=== PATIENT | male | born 1975 | race Two or more races ===

== ENCOUNTER 2021-07-29 15:17 | Emergency (ER) | payer BC ==
[~2021-07-29] VITALS: Ht 175.3 cm; Wt 85.3 kg
[2021-07-29 16:29] LABS: Albumin 3.8 g/dL (3.4-5.0); Calcium 8.4 mg/dL (8.5-10.1); Potassium 3.7 mmol/L (3.5-5.1)
[2021-07-29 16:34] LABS: BUN/Creatinine Ratio 11.3; Bilirubin, Total 0.7 mg/dL (0.2-1.0); Total Protein 7.7 g/dL (6.4-8.2)
[2021-07-29 16:42] LABS: Basophils # (auto) 0 10 ^3/uL (0-0.2); Basophils % (auto) 0.3 % (0.0-2.0); Eosinophils # (auto) 0 10 ^3/uL (0-0.8); Hematocrit 45.9 % (41.0-53.0); Hemoglobin 15.5 g/dL (13.5-17.5); Lymphocytes # (auto) 1.7 10 ^3/uL (0.4-5.4); Lymphocytes % (auto) 34.2 % (10.0-50.0); Mean Corpuscular Hemoglobin 28.8 pg (28.0-32.0); Mean Corpuscular Hgb Conc. 33.9 g/dL (32.0-36.0); Monocytes # (auto) 0.7 10 ^3/uL (0-1.3); Monocytes % (auto) 14.8 % (0.0-12.0); Neutrophils # (auto) 2.5 10 ^3/uL (1.6-8.6); Neutrophils % (auto) 50.7 % (37.0-80.0); Nucleated Red Blood Cells % 0.3 %; Red Cell Distribution Width 12.7 % (11.8-14.3)
[2021-07-29] MEDS ORDERED: cefTRIAXone W LIDOCAINE 1 GM IM IM ONE (16:45)
[2021-07-29 16:47] LABS: Urine Bacteria NONE SEEN /hpf (None Seen); Urine Blood Negative /uL (Negative); Urine Specific Gravity 1.014 (1.001-1.035); Urine WBC 1 /hpf (0 - 3)
[2021-07-29] MEDS ORDERED: DexAMETHasone SOD PHOS 10MG/1ML VIAL INJ IV ONE (17:00)
[2021-07-29] MEDS ORDERED: cefTRIAXone SOD 1,000 MG VL ONE (18:10)
[2021-07-29] MEDS ORDERED: LIDOCAINE 1% HCL (LOCAL ANESTH.) INJ 20ML MDV ONE (18:10)
[2021-07-29] MEDS ORDERED: DexAMETHasone SOD PHOS 10MG/1ML VIAL INJ IM ONE (18:15)
[2021-07-29 18:25] VITALS: BP 142/58
== END 2021-07-29 18:30 | disposition home or self-care (01) ==
LOC: ER 15:17
DX: U07.1 COVID-19 (principal); J12.82 Pneumonia due to coronavirus disease 2019; Z88.0 Allergy status to penicillin
CPT/HCPCS: 36415; 71045; 80053; 81001; 85025; 96372; 99284; C9803; J0696; J1100; J2001; U0003

== ENCOUNTER 2025-04-25 16:48 | Inpatient (IN) | payer BC, OTHER ==
[~2025-04-25] VITALS: Ht 175.3 cm; Wt 83.0 kg
--- NOTE | 2025-04-25 17:25 | ED.PDOC ---
History of Present Illness HPI Comments 50-year-old male presents to the ER with a prior medical history of CAD in the chief complaint of chest pain. Patient reports on having one week of worsening left-sided chest pain which has been intermittent associated with shortness a breath. 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 Denies chills, fever, N/V/D. No other associated symptoms, modifiers, recent injuries or sick contacts present at this time. Chief Complaint: Chest Pain Time Seen by MD: 17:20 Reviewed Notes: Nurses Notes, Medications, Allergies Allergies: Coded Allergies: Penicillins (Verified Allergy, Unknown, 07/29/21) Information Source: Patient Mode of Arrival: Ambulatory Severity: Moderate Timing: Weeks Duration: Since onset Prehospital treatment: None Past Medical History PAST MEDICAL HISTORY: CAD Surgical History: Denies all surgeries Family History Family History: Reviewed,noncontributory to illness, Unknown Social History Smoker: Non-Smoker Alcohol: Denies ETOH Use Drugs: Denies Drug Use Constitutional: denies: chills, diaphoresis, fatigue, fever, malaise, sweats, weakness, others EENTM: denies: blurred vision, double vision, ear bleeding, ear discharge, ear drainage, ear pain, ear ringing, eye pain, eye redness, hearing loss, mouth pain, mouth swelling, nasal discharge, nose bleeding, nose congestion, nose pain, photophobia, tearing, throat pain, throat swelling, voice changes, others Respiratory: reports: shortness of breath; denies: cough, hemoptysis, orthopnea, SOB at rest, SOB with excertion, stridor, wheezing, others Cardiovascular: reports: chest pain; denies: dizzy spells, diaphoresis, Dyspnea on exertion, edema, irregular heart beat, left arm pain, lightheadedness, palpitations, PND, syncope, others Gastrointestinal: denies: abdomen distended, abdominal pain, blood streaked bowels, constipated, diarrhea, dysphagia, difficulty swallowing, hematemesis, melena, nausea, poor appetite, poor fluid intake, rectal bleeding, rectal pain, vomiting, others Genitourinary: denies: burning, dysuria, flank pain, frequency, hematuria, incontinence, penile discharge, penile sore, pain, testicle pain, testicle swelling, urgency, others Neurological: denies: dizziness, fainting, headache, left sided numbness, left sided weakness, numbness, paresthesia, pre-existing deficit, right sided numbness, right sided weakness, seizure, speech problems, tingling, tremors, weakness, others Musculoskeletal: denies: back pain, gout, joint pain, joint swelling, muscle pain, muscle stiffness, neck pain, others Integumetry: denies: bruises, change in color, change in hair/nails, dryness, laceration, lesions, lumps, rash, wounds, others Allergic/Immunocompromised: denies: Difficulty Healing, Frequent Infections, Hives, Itching, others Hematologic/Lymphatic: denies: anemia, blood clots, easy bleeding, easy bruising, swollen glands, others Endocrine: denies: excessive hunger, excessive sweating, excessive thirst, excessive urination, flushing, intolerance to cold, intolerance to heat, unexplained weight gain, unexplained weight loss, others Psychiatric: denies: anxiety, bipolar disorder, depression, hopeless, panic disorder, schizophrenia, sleepless, suicidal, others All Other Systems: Reviewed and Negative Physical Exam Exam Comments Patient looked comfortable General Appearance: No Apparent Distress, Normal HEENT: Normal ENT Inspection, Pharynx Normal, TMs Normal Neck: Full Range of Motion, Non-Tender, Normal, Normal Inspection Respiratory: Chest Non-Tender, Lungs Clear, No Accessory Muscle Use, No Respiratory Distress, Normal Breath Sounds Cardiovascular: No Edema, No JVD, No Murmur, No Gallop, Normal Peripheral Pulses, Regular Rate/Rhythm, Other (Left-sided chest pain) Breast Exam: Deferred Gastrointestinal: No Organomegaly, Non Tender, No Pulsatile Mass, Normal Bowel Sounds, Soft Genitalia: Deferred Pelvic: Deferred Rectal: Deferred Extremities: No calf tenderness, Normal capillary refill, Normal inspection, Normal range of motion, Non-tender, No pedal edema Musculoskeletal : Apperance: Normal Neurologic: Alert, chief executive or managing director II-XII nml as Tested, No Motor Deficits, Normal Affect, Normal Mood, No Sensory Deficits Cerebellar Function: Normal Reflexes: Normal Skin: Dry, Normal Color, Warm Lymphatic: No Adenopathy Was a procedure done? Was a procedure done?: No Differential Dx Considerations may include: ACS, CVA, viral syndrome, electrolyte abnormality X-Ray, Labs, Meds, VS Vital Signs Date Time Temp Pulse Resp B/P (MAP) Pulse Ox O2 Delivery O2 Flow Rate FiO2 04/25/25 17:57 62 04/25/25 16:56 68 04/25/25 16:53 98.1 76 18 140/86 97 98.1 Lab Test 04/25/25 17:08 Range/Units White Blood Count Pending Red Blood Count Pending Hemoglobin Pending Hematocrit Pending Mean Corpuscular Volume Pending Mean Corpuscular Hemoglobin Pending Mean Corpuscular Hemoglobin Concent Pending Red Cell Distribution Width Pending Platelet Count Pending Mean Platelet Volume Pending Neutrophils (%) (Auto) Pending Lymphocytes (%) (Auto) Pending Monocytes (%) (Auto) Pending Basophils (%) (Auto) Pending Neutrophils # (Auto) Pending Lymphocytes # (Auto) Pending Monocytes # (Auto) Pending Sodium Level Pending Potassium Level Pending Chloride Level Pending Carbon Dioxide Level Pending Anion Gap Pending Blood Urea Nitrogen Pending Creatinine Pending Glomerular Filtration Rate Calc Pending BUN/Creatinine Ratio Pending Serum Glucose Pending Calcium Level Pending Troponin I High Sensitivity 4 </=54 ng/L Time of 1ST Reevaluation: 17:50 Reevaluation 1ST: Unchanged Patient Education/Counseling: Diagnosis, Treatment, Prognosis Family Education/Counseling: No Family Present SEPSIS Sepsis Screen Date sepsis recognized/suspect: Apr 25, 2025 Time Sepsis recognized/suspect: 1651 Recent Procedure: No On Antibiotic Therapy: No Respiratory Rate >20: No Heart Rate >90: No Temp<36 C (96.8 F) or >38.3 C: No SBP <90 or MAP <65 mmHG: No New Acute Mental Status Change: No Is the patient on CPAP, BIPAP,: No Physician Orders Electrocardigram (04/25/25 16:58) Troponin-I Hs (04/25/25 17:58) Troponin-I Hs (04/25/25 19:58) Electrocardigram (04/25/25 17:58) Electrocardigram (04/25/25 19:58) Basic Metabolic Panel (04/25/25 17:07) Complete Blood Count (04/25/25 17:07) Chest Portable (04/25/25 17:07) Vital Signs Date Time Temp Pulse Resp B/P (MAP) Pulse Ox O2 Delivery O2 Flow Rate FiO2 04/25/25 17:57 62 04/25/25 16:56 68 04/25/25 16:53 98.1 76 18 140/86 97 98.1 Laboratory Tests Test 04/25/25 17:08 White Blood Count Pending Departure 1 Departure Time of Disposition: 18:04 (Patient presented with chest pain that was concerning for possible STEMI, ACS, PE, Pneumonia, Muscle Strain, COPD, Dissection. Data: 1. I ordered and reviewed the result of at least 3 labs including a CBC, BMP, and Troponin. 2. I independently interpreted the following tests: EKG which shows sinus arrhythmia and Chest X-ray which shows benign chest.Risk:This patient has a high risk of morbidity due to further diagnostic testing or treatment and may suffer from an acute cardiac or respiratory disorder. Workup reveals concern for ACS and patient should be admitted for further workup and possible expert consultation. ) Impression: Primary Impression: Acute chest pain Disposition: ADMITTED INPATIENT Admit to: Med Surg Condition: Guarded Critical Care Note Critical Care Time?: Yes Critical care comment: Acute chest pain Authorized and Performed by: Dannielle Garcia MD Total critical care time: Approximately 38 minutes Due to a high probability of clinically significant, life threatening deterioration, the patient required my highest level of preparedness to intervene emergently and I personally spent this critical care time directly and personally managing the patient. This critical care time included obtaining a history; examining the patient; pulse oximetry; ordering and review of studies; arranging urgent treatment with development of a management plan; evaluation of patient's response to treatment; frequent reassessment; and, discussions with other providers. This critical care time was performed to assess and manage the high probability of imminent, life-threatening deterioration that could result in multi-organ failure. It was exclusive of separately billable procedures and treating other patients and teaching time. Please see my other sections and the rest of the note for further information on patient assessment and treatment. Stability Stability form required: No I personally scribed for WENDY VIAVS PAC ([email or web address]) on 04/25/25 at 17:25. Electronically submitted by Rhys Campo ([email or web address]). WENDY VIVAS Apr 25, 2025 17:25 DANNIELLE GARCIA MD Apr 25, 2025 18:05
[2025-04-25 17:59] LABS: Hematocrit 44.2 % (41.0-53.0); Hemoglobin 15.6 g/dL (13.5-17.5); Mean Corpuscular Hemoglobin 29.6 pg (28.0-32.0); Mean Corpuscular Volume 84.1 fL (80.0-100.0); Nucleated Red Blood Cells % 0.1 %
[2025-04-25 18:10] LABS: Chloride 106 mmol/L (98-107); Potassium 3.6 mmol/L (3.5-5.1); Sodium 139 mmol/L (136-145)
[2025-04-25 18:11] LABS: Anion Gap 7 (5-15); Calcium 9.4 mg/dL (8.7-10.4); Carbon Dioxide 26 mmol/L (20-31)
[2025-04-25 18:16] LABS: BUN/Creatinine Ratio 13.3 (10.0-20.0); Blood Urea Nitrogen 15 mg/dL (9-23); Glucose 90 mg/dL (74-106)
--- NOTE | 2025-04-25 18:16 | DVH ---
CHEST RADIOGRAPH Indication: Chest pain Technique: Single frontal view of the chest was obtained Comparison: CHEST XRAY 1 VIEW on DOS: 07/29/21 FINDINGS: Lines and Tubes: None Lungs: No focal consolidation. Pleura: No effusion. No pneumothorax. Cardiomediastinal contours: Unremarkable Bones: No acute osseous abnormality. IMPRESSION: 1. No acute cardiopulmonary disease.
[2025-04-25] MEDS ORDERED: MORPHINE SULFATE INJ 2 MG/ml SYRG IV PRN (22:45)
[2025-04-26] VITALS (11 sets, daily range): BP systolic 121–139; BP diastolic 70–86; PULSE 47–67; RESP 16–18; TEMP 97.8–98; O2SAT 96–98
[2025-04-26] MEDS ORDERED: NITROGLYCERIN 0.4 MG SL TAB SL PRN (01:45)
[2025-04-26] MEDS ORDERED: MORPHINE SULFATE INJ 2 MG/ml SYRG IV PRN ×2 (01:45)
[2025-04-26] MEDS ORDERED: DOCUSATE SOD 100 MG CAP PO PRN (01:45)
[2025-04-26] MEDS ORDERED: ONDANSETRON HCL 4 MG/2 ML VIAL IV PRN (01:45)
[2025-04-26] MEDS: SODIUM CHLORIDE 0.9% 1,000 ML IV SCH (02:55)
--- NOTE | 2025-04-26 03:19 | DVHHPRES ---
History of Present Illness Resident Creating Document: ELTON IBARRA RESIDENT History of Present Illness Tio Robb, a 50-year-old male with a history of coronary artery disease presents to the ER with one week of worsening intermittent left-sided chest pain associated with shortness of breath. 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 He denies fever, chills, nausea, vomiting, diarrhea, recent injuries, or sick contacts. Pain is described as sharp, burning pain, sudden in onset, in the substernal area , which is "coming and going" feels like a "shock in my chest" which increases with sudden movement, decreased with rest and relaxation. Patient states that he had undergone angiogram before and states that he has stenosis in 2 arteries, but states no stent was placed. He arrived ambulatory and has not received any prehospital treatment. Patient is admitted for further management. Past Medical Hx: CAD Past Surgical Hx: Removed benign tumor in groin Family Hx: Reviewed,noncontributory to illness, Unknown Social History: The patient is a non-smoker, denies alcohol use, and denies any illicit drug use. Comes from home. Home medications: ASA, Atorvastatin Review of Systems Constitutional: No: Fever, Chills, Sweats, Weakness, Malaise, Other Eyes: No: Pain, Vision change, Conjunctivae inflammation, Eyelid inflammation, Other, Redness ENT: No: Ear pain, Ear discharge, Nose pain, Nose discharge, Nose congestion, Mouth pain, Mouth swelling, Throat pain, Throat swelling, Other Respiratory: Shortness of breath Cardiovascular: Chest Pain Gastrointestinal: No: Nausea, Vomiting, Abdominal Pain, Diarrhea, Constipation, Melena, Hematochezia, Other Genitourinary: No Dysuria, No Frequency, No Incontinence, No Hematuria, No Retention, No Other Musculoskeletal: No: other, neck pain, shoulder pain, arm pain, back pain, hand pain, leg pain, foot pain Skin: No: Rash, Lesions, Jaundice, Bruising, Other Neurological: No: Weakness, Numbness, Incoordination, Change in speech, Confusion, Seizures, Other Allergies: Coded Allergies: Penicillins (Verified Allergy, Unknown, 07/29/21) Medications Current Medications Medications Dose Ordered Sig/Horace Route Start Time Stop Time Status Last Admin Dose Admin Nitroglycerin 0.4 mg Q5MINP PRN SL 9/5/25 22:45 Morphine Sulfate 2 mg Q30M PRN IV 04/25/25 22:45 Sodium Chloride 1,000 ml @ 60 mls/hr [id number] IV 04/26/25 01:45 Ondansetron HCl 4 mg Q4HP PRN IV 04/26/25 01:45 Docusate Sodium 100 mg BIDPRN PRN PO 04/26/25 01:45 Morphine Sulfate 2 mg Q4HPRN PRN IV 04/26/25 01:45 Nitroglycerin 0.4 mg Q5MINP PRN SL 04/26/25 01:45 Morphine Sulfate 2 mg Q30M PRN IV 04/26/25 01:45 Exam Vital Signs Vital Signs Date Time Temp Pulse Resp B/P (MAP) Pulse Ox O2 Delivery O2 Flow Rate FiO2 04/26/25 02:03 98.2 58 16 141/77 (98) 96 98.2 04/25/25 19:20 Room Air Exam General: Patient alert and oriented in person, place and time. Patient following commands. In mild distress HEENT: Normocephalic, atraumatic, moist mucous membranes Respiratory/pulmonary: Clear lungs bilaterally, vesicular murmurs present in almost all lung davis, no associated crackles or wheezes. Cardiovascular: Normal heart sounds S1 and S2 with no associated murmurs. No reproducible chest tenderness Abdomen: Abdomen nondistended, there is no pain to palpation in any of the abdominal quadrants, no palpable masses. Extremities: There is no peripheral edema present at the lower extremities. Peripheral Pulses: 3+ Radial (R). 3+ Radial (L). 3+ Dorsalis pedis (R). 3+ Dorsalis pedis(L) Skin: No rashes or pruritus, there is no sacral edema present at this time. Neurological: Intact cranial nerves with no focal neurologic deficits Psych/mood: Normal psych/mood Labs/Xrays Labs Test 04/25/25 19:57 04/25/25 17:08 Range/Units Troponin I High Sensitivity < 3 L </=54 ng/L White Blood Count 7.2 4.4-10.8 10^3/uL Red Blood Count 5.25 4.5-5.90 10^6/uL Hemoglobin 15.6 13.5-17.5 g/dL Hematocrit 44.2 41.0-53.0 % Mean Corpuscular Volume 84.1 80.0-100.0 fL Mean Corpuscular Hemoglobin 29.6 28.0-32.0 pg Mean Corpuscular Hemoglobin Concent 35.2 32.0-36.0 g/dL Red Cell Distribution Width 12.9 11.8-14.3 % Platelet Count 251 140-450 10^3/uL Mean Platelet Volume 8.4 6.9-10.8 fL Neutrophils (%) (Auto) 48.2 37.0-80.0 % Lymphocytes (%) (Auto) 41.3 10.0-50.0 % Monocytes (%) (Auto) 8.3 0.0-12.0 % Eosinophils (%) (Auto) 1.6 0.0-7.0 % Basophils (%) (Auto) 0.6 0.0-2.0 % Neutrophils # (Auto) 3.5 1.6-8.6 10 ^3/uL Lymphocytes # (Auto) 3.0 0.4-5.4 10 ^3/uL Monocytes # (Auto) 0.6 0-1.3 10 ^3/uL Eosinophils # (Auto) 0.1 0-0.8 10 ^3/uL Basophils # (Auto) 0 0-0.2 10 ^3/uL Nucleated Red Blood Cells 0.1 % Sodium Level 139 136-145 mmol/L Potassium Level 3.6 3.5-5.1 mmol/L Chloride Level 106 98-107 mmol/L Carbon Dioxide Level 26 20-31 mmol/L Anion Gap 7 5-15 Blood Urea Nitrogen 15 9-23 mg/dL Creatinine 1.13 0.700-1.30 mg/dL Glomerular Filtration Rate Calc 79 >90 mL/min BUN/Creatinine Ratio 13.3 10.0-20.0 Serum Glucose 90 74-106 mg/dL Calcium Level 9.4 8.7-10.4 mg/dL SEPSIS Sepsis Screen Date sepsis recognized/suspect: Apr 25, 2025 Time Sepsis recognized/suspect: 1651 Recent Procedure: No On Antibiotic Therapy: No Respiratory Rate >20: No Heart Rate >90: No Temp<36 C (96.8 F) or >38.3 C: No SBP <90 or MAP <65 mmHG: No New Acute Mental Status Change: No Is the patient on CPAP, BIPAP,: No Physician Orders Nitroglycerin Sublingual (Ntrostat Subli (04/25/25 22:45) Morphine Sulfate Injection (04/25/25 22:45) Oxygen By Nasal Cannula (04/25/25 22:34) Stat Ekg For Chest Pain (04/25/25 22:34) Notify Md Of Changes From Base (04/25/25 22:34) Marine Driller For 24 Hours (04/25/25 22:34) Emergency Dysrhythmia Protocol (04/25/25 22:34) Rhythm Strips Once Every Shift (04/25/25 22:34) Admit (04/26/25 01:39) Allergies (04/26/25 01:39) Code Status (04/26/25 01:39) 2 Gm Sodium Diet (04/26/25 Breakfast) Sodium Chloride 0.9% (04/26/25 01:45) Ondansetron Hcl (Zofran) (04/26/25 01:45) Docusate Sodium Capsule (Colace Capsule) (04/26/25 01:45) Complete Blood Count (04/26/25 04:00) Comprehensive Metabolic Panel (04/26/25 04:00) Condition: Serious (04/26/25 01:39) Bedrest With Bathroom Privileg (04/26/25 01:39) Morphine Sulfate Injection (04/26/25 01:45) Nitroglycerin Sublingual (Ntrostat Subli (04/26/25 01:45) Morphine Sulfate Injection (04/26/25 01:45) Urinalysis (04/26/25 01:46) Drug Screen (04/26/25 01:46) B-Type Natriuretic Peptide (04/26/25 01:46) D-Dimer (04/26/25 01:46) Prothrombin Time W/ Inr (04/26/25 01:46) Vital Signs Date Time Temp Pulse Resp B/P (MAP) Pulse Ox O2 Delivery O2 Flow Rate FiO2 04/26/25 02:03 98.2 58 16 141/77 (98) 96 98.2 04/25/25 19:20 97.9 62 18 108/68 (81) 98 97.9 04/25/25 19:20 62 18 98 Room Air Laboratory Tests Test 9/5/25 17:08 White Blood Count 7.2 10^3/uL (4.4-10.8) Assessment/Plan Assessment/Plan #acute chest pain admitted to rule out ACS: CXR unremarkable, repeat EKG, last hospitalization 04/15/2025, Continue home dose of aspirin or atorvastatin as nee ded nitroglycerin, EKG, continue on telemetry close monitoring. check echo, UDS, ESR CRP. #Questionable history of CAD: Poor historian, needs further evaluation, workup in progress. Till then continue home medications atorvastatin and aspirin. #asymptomatic bradycardia in 50s, likely due to resting heart: Continue tele, reassurance only, check TSH, otherwise no further workup needed. Stat EKG. rule out AV block. Correct electrolytes with keep magnesium over 2 and potassium over 4. #Distant history of COVID pneumonia in 2020: no residual respiratory complication , breathing comfortably in the room air > 94% SpO2 #known allergy to penicillin: Avoid penicillin group of antibiotics #possibility of noncardiac chest pain, Musculo- skeletal chest pain: Re- evaluate, complete the cardiac workup, COVID /influenza to check for viral pleurisy, #high probability of GERD/ PUD associated chest pain: IV PPI with Maalox to continue, avoid NSAIDs, dietary modifications with lifestyle modifications. #Poor medication compliance: Patient is counseled at bedside. Check for HbA1c and lipid panel. #Diet: cardiac diet, daily 2 g salt restriction #DVT prophylaxis: Lovenox #GI Prophylaxis: PPI PCP: Not established, at discharge needs discharge Clinic follow up, needs to establish care with a PCP. Barriers to discharge: Medical workup and management ongoing. Patient do not have insurance. Social work/ family service caseworker consulted for insurance consultation. Case discussed with Dr. Hennessy. Code status: Full code. Complex patient care discussion needed total 39 minutes. Plan discussed with: Patient My Orders Orders - ELTON IBARRA RESIDENT Procedure Category Date Status Time Nitroglycerin PHA 04/25/25 In Process Sublingual (Ntrostat 22:45 Morphine Sulfate PHA 04/25/25 In Process Injection 22:45 Oxygen By Nasal RT 04/25/25 Transmitted Cannula 22:34 Stat Ekg For Chest LISANDRA 04/25/25 In Process Pain 22:34 Notify Md Of Changes LISANDRA 04/25/25 In Process From Base 22:34 Marine Driller For LISANDRA 04/25/25 In Process 24 Hours 22:34 Emergency Dysrhythmia [facility] 04/25/25 In Process Protocol 22:34 Rhythm Strips Once [facility] 04/25/25 In Process Every Shift 22:34 Admit ADMIT 04/26/25 Transmitted 01:39 Allergies LISANDRA 04/26/25 In Process 01:39 Code Status CODE 04/26/25 Transmitted 01:39 2 Gm Sodium Diet DIET 04/26/25 Transmitted Breakfast Sodium Chloride 0.9% PHA 04/26/25 In Process 01:45 Ondansetron Hcl PHA 04/26/25 In Process (Zofran) 01:45 Docusate Sodium PHA 04/26/25 In Process Capsule (Colace 01:45 Complete Blood Count LAB 04/26/25 Logged 04:00 Comprehensive LAB 04/26/25 Logged Metabolic Panel 04:00 Condition: Serious LISANDRA 04/26/25 In Process 01:39 Bedrest With Bathroom [facility] 04/26/25 In Process Privileg 01:39 Morphine Sulfate PHA 04/26/25 In Process Injection 01:45 Nitroglycerin PHA 04/26/25 In Process Sublingual (Ntrostat 01:45 Morphine Sulfate PHA 04/26/25 In Process Injection 01:45 Urinalysis LAB 04/26/25 Logged 01:46 Drug Screen LAB 04/26/25 Logged 01:46 B-Type Natriuretic LAB 04/26/25 Logged Peptide 01:46 D-Dimer LAB 04/26/25 Logged 01:46 Prothrombin Time W/ LAB 04/26/25 Logged INR 01:46 Date of Service: Apr 25, 2025 Billing Provider: FALLON HENNESSY MD Common Visit Codes: 55136-SCYUDRC INP/OBS CARE (HIGH) Secondary Visit Codes: 24549-[id number] CARE PLAN 30 MINUTES ELTON IBARRA RESIDENT Apr 26, 2025 03:18 TANK TUCKER RESIDENT Apr 26, 2025 04:36
[2025-04-26] MEDS: PANTOPRAZOLE 40 MG/10 ML VIAL INJ IV SCH (05:51)
--- NOTE | 2025-04-26 06:41 | ECG ---
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
[2025-04-26 07:36] LABS: Hematocrit 44.4 % (41.0-53.0); Hemoglobin 15.8 g/dL (13.5-17.5); Mean Corpuscular Hemoglobin 30.5 pg (28.0-32.0); Mean Corpuscular Volume 85.7 fL (80.0-100.0); Nucleated Red Blood Cells % 0.2 %
[2025-04-26 07:48] LABS: Alanine Aminotransferase 15 U/L (7-40); Albumin 4.3 g/dL (3.2-4.8); Alkaline Phosphatase 53 U/L (46-116); Anion Gap 8 (5-15); BUN/Creatinine Ratio 11.0 (10.0-20.0); Blood Urea Nitrogen 12 mg/dL (9-23); Calcium 9.3 mg/dL (8.7-10.4); Carbon Dioxide 29 mmol/L (20-31); Chloride 105 mmol/L (98-107); Glucose 92 mg/dL (74-106); Potassium 3.8 mmol/L (3.5-5.1); Sodium 142 mmol/L (136-145); Total Protein 7.5 g/dL (5.7-8.2)
[2025-04-26 07:50] LABS: Bilirubin, Total 1.2 mg/dL (0.2-1.0)
[2025-04-26 07:54] LABS: INR 1.06 (0.9-1.15); Prothrombin Time 11.2 sec (9.3-11.8)
[2025-04-26 08:16] LABS: Hepatitis B Surface Antigen Negative (Negative)
[2025-04-26 08:34] LABS: Hepatitis C Antibody Negative (Negative)
--- NOTE | 2025-04-26 08:47 | DVHPNRES ---
Progress Note Date Seen: Apr 26, 2025 Resident Creating Document: ANGEL GARCIA RESIDENT Medical Necessity Reason Pt with a Central, PICC or Fol: No Subjective Review of Systems Tio Robb is a 50-year-old male with a PMH of CAD of breath he presented to the ED with the chief complaints of chest pain. patient reported experiencing chest pain for approximately 8 months ago when he diagnosed with a CAD, patient describes chest pain feeling like sharp and pressure was, also experiences burning sensation sometimes in his chest. The pain has been increasing in frequency, yesterday he experienced constant pain throughout the day with 1 significant episode lasting for more than 15 minutes. The pain is alleviated by relaxation, awaiting over exertion. He denies associated difficulty breathing. Deep into the history the patient was diagnosed with a CAD about 8 months ago following an angiogram which revealed 10% blockage in 1 artery and 30-40% blockage in other artery, prescribed statins and aspirin but he has been not taking any medications because he is stating he is sick and tired of taking it in his stead he opted for alternative treatment including herbal based on his own research. The patient has lost cardiology follow up was 3 months ago, mentioned his clinical coder advised him to seek care sooner due to pressure and sharp pains he has been experiencing but patient is currently awaiting insurance approval for further evaluation. Asked patient's to bring the medical records. PMH: CAD, HLD PSH: Angiogram approximately 826 months ago Family history: Uncle have cardiac history with the 3 stents placed Social history: Lives at home. Occasional alcohol use, former marijuana use, former recreational drug use in his teens and early 20s Allergies: No known allergies Home medications: Herbals Patient seen and examined at the bedside. Overnight events reviewed no active complaints at this time. Troponins x3 were negative and EKG reviewed which showed normal sinus rhythm. Chest pain protocol is in place. Patient reports: Feels better Objective vital signs Vital Sign Date Time Temp Pulse Resp B/P (MAP) Pulse Ox O2 Delivery O2 Flow Rate FiO2 04/26/25 08:36 98.0 50 16 128/70 (89) 98 98.0 04/26/25 08:10 Room Air* 0 21 Total Intake and Output 04/25/25 04/25/25 04/26/25 15:00 23:00 07:00 Intake Total 600 ml Balance 600 ml medications Current Medications Medications Dose Ordered Sig/Horace Route Start Time Stop Time Status Last Admin Dose Admin Nitroglycerin 0.4 mg Q5MINP PRN SL 04/25/25 22:45 Morphine Sulfate 2 mg Q30M PRN IV 04/25/25 22:45 Cancel Sodium Chloride 1,000 ml @ 60 mls/hr [id number] IV 04/26/25 01:45 Ondansetron HCl 4 mg Q4HP PRN IV 04/26/25 01:45 Docusate Sodium 100 mg BIDPRN PRN PO 04/26/25 01:45 Morphine Sulfate 2 mg Q4HPRN PRN IV 04/26/25 01:45 Nitroglycerin 0.4 mg Q5MINP PRN SL 04/26/25 01:45 Cancel Morphine Sulfate 2 mg Q30M PRN IV 04/26/25 01:45 Aspirin 81 mg DAILY PO 04/27/25 10:00 Atorvastatin Calcium 40 mg HS PO 04/26/25 22:00 Pantoprazole Sodium 40 mg DAILY@0730 IV 04/26/25 07:30 04/26/25 05:51 40 MG Enoxaparin Sodium 40 mg DAILY SC 04/26/25 10:00 UNV Examination Pt is lying on bed General Appearance: Alert, Oriented X3, Cooperative, Not in acute distress HEENT: Atraumatic, Mucous membranes moist/pink Respiratory: Clear to auscultation, Normal air movement, No added sounds Cardiovascular: Regular rate, Normal S1, Normal S2, No murmurs Abdominal: Active bowel sounds, Soft, no distention, no tenderness Extremities: No edema, Normal pulses, No tenderness/swelling Skin: No Significant rash Neuro: Normal speech, sensorimotor deficits none Psych/Mental Status: Mental status NL, Mood NL Nurse was there as court bailiff or sheriff during examination laboratory and microbiology Laboratory Tests 04/26/25 06:08 Test 04/26/25 06:08 Range/Units Serum Glucose 92 74-106 mg/dL Labs and/or images reviewed: Labs reviewed by me, Image(s) reviewed by me Problem List/Assessment/Plan Problem List/Assessment/Plan # Chest pain R/o ACS # Hx of CAD # medication noncompliance # Hx HLD - Telemetry - Trops x3 were negative - EKG showed NSR no acute ST changes - Chest pain protocol with morphine, nitroglycerine - Aspirin - Lipitor - cardiology consult , pending - UDS pending - counseled regarding the importance of adherence to medications and explained risks versus benefits for 22 minutes - pending echocardiogram # Asymptomatic bradycardia, monitor on telemetry # Mild bilirubinemia, monitor for now GI PPX: Protonix VTE ppx: Lovenox Diet: Cardiac Goals of care discussed with the patient for 20 minutes: Full code status Case discussed with Dr. Merrill ,patient and nurse Plan discussed with: Patient, Other (RN) My Orders My Orders Orders - ANGEL GARCIA RESIDENT Procedure Category Date Status Time Enoxaparin Sodium PHA 04/26/25 Logged (Lovenox) 10:00 Addendum Addendum Addendum I was physically present for the madrigal portions of the service provided to patient by THE RESIDENT. I have reviewed the documentation, discussed the case with resident and agree with the resident's documentation except as noted. Also the patient's clinical case was discussed with the patient's nurse. This medical document was created using an electronic medical record system with computerized dictation system. Although this document has been carefully reviewed, there might still be some phonetic and typographical errors. These areas are purely typographical due to imperfections of the software programs, and do not reflect any compromise in the patient's medical care. Late signature. Date of Service: Apr 26, 2025 Billing Provider: RAINE MERRILL MD Common Visit Codes: 85064-[id number] INP/OBS CARE(HIGH) Secondary Visit Codes: 23064-[id number] CHNG SMOKING >10MIN (Counseled regarding the importance of adherence to medications and explained risks versus benefits for 22 minutes), 97870-[id number] CARE PLAN 30 MINUTES (20 minutes) ANGEL GARCIA RESIDENT Apr 26, 2025 08:47 RAINE MERRILL MD Apr 28, 2025 04:40
[2025-04-26] MEDS: ENOXAPARIN SOD 40 MG/0.4 ML SYRINGE SC SCH (09:57)
[2025-04-26 13:43] LABS: Triglycerides 126 mg/dL (< 150)
[2025-04-26 13:45] LABS: HDL Cholesterol 42 mg/dL (40-59)
[2025-04-26 13:46] LABS: Cholesterol 206 mg/dL (< 200)
[2025-04-26] MEDS: ATORVASTATIN 20 MG TAB PO SCH (21:10)
--- NOTE | 2025-04-26 23:55 | DVHINCON2 ---
Date of service: Apr 26, 2025 Referring Physician Steven Reason for Consultation Chest pain, history of CAD History of Present Illness This is a 50-year-old male with a PMH of CAD who presents to the ED with a complaint of chest pain x1 week. Patient reports worsening left-sided chest pain which has been intermittent associated with shortness of breath. Patient notes on talking to his geophysical e logger who recommended the patient to come to the ED to get a cardiac catheterization. CBC and CMP are unremarkable. EKG is NSR at 68. Chest x-ray shows NAD. Patient was admitted to the hospital. I am asked to consult on this patient. Family History: Cardiovascular disease G8 FATHER Diabetes mellitus G8 MOTHER Allergies: Coded Allergies: Penicillins (Verified Allergy, Unknown, 07/29/21) Current Medications Current Medications Medications (Trade) Dose Ordered Sig/Horace Route PRN Reason Start Time Stop Time Status Last Admin Sodium Chloride 1,000 ml @ 60 mls/hr [id number] IV 04/26/25 01:45 04/26/25 11:32 DC Ondansetron HCl (Zofran) 4 mg Q4HP PRN IV NAUSEA / VOMITING 04/26/25 01:45 Docusate Sodium (Colace Capsule) 100 mg BIDPRN PRN PO FOR CONSTIPATION 04/26/25 01:45 Morphine Sulfate 2 mg Q4HPRN PRN IV SEVERE PAIN (7-10 PAIN SCALE) 04/26/25 01:45 Nitroglycerin (Ntrostat Sublingual) 0.4 mg Q5MINP PRN SL FOR CHEST PAIN 04/26/25 01:45 Cancel Morphine Sulfate 2 mg Q30M PRN IV FOR CHEST PAIN 04/26/25 01:45 Aspirin 81 mg DAILY PO 04/27/25 10:00 Atorvastatin Calcium (Lipitor) 40 mg HS PO 04/26/25 22:00 04/26/25 21:10 Pantoprazole Sodium (Protonix) 40 mg DAILY@0730 IV 04/26/25 07:30 04/26/25 05:51 Enoxaparin Sodium (Lovenox) 40 mg DAILY SC 04/26/25 10:00 04/26/25 09:57 Review of Systems Constitutional: denies: chills, diaphoresis, fatigue, fever, malaise, sweats, weakness, others EENTM: denies: blurred vision, double vision, ear bleeding, ear discharge, ear drainage, ear pain, ear ringing, eye pain, eye redness, hearing loss, mouth pain, mouth swelling, nasal discharge, nose bleeding, nose congestion, nose pain, photophobia, tearing, throat pain, throat swelling, voice changes, others Respiratory: reports: shortness of breath; denies: cough, hemoptysis, orthopnea, SOB at rest, SOB with excertion, stridor, wheezing, others Cardiovascular: reports: chest pain; denies: dizzy spells, diaphoresis, Dyspnea on exertion, edema, irregular heart beat, left arm pain, lightheadedness, palpitations, PND, syncope, others Gastrointestinal: denies: abdomen distended, abdominal pain, blood streaked bowels, constipated, diarrhea, dysphagia, difficulty swallowing, hematemesis, melena, nausea, poor appetite, poor fluid intake, rectal bleeding, rectal pain, vomiting, others Genitourinary: denies: burning, dysuria, flank pain, frequency, hematuria, incontinence, penile discharge, penile sore, pain, testicle pain, testicle swelling, urgency, others Neurological: denies: dizziness, fainting, headache, left sided numbness, left sided weakness, numbness, paresthesia, pre-existing deficit, right sided numbness, right sided weakness, seizure, speech problems, tingling, tremors, weakness, others Musculoskeletal: denies: back pain, gout, joint pain, joint swelling, muscle pain, muscle stiffness, neck pain, others Integumetry: denies: bruises, change in color, change in hair/nails, dryness, laceration, lesions, lumps, rash, wounds, others Allergic/Immunocompromised: denies: Difficulty Healing, Frequent Infections, Hives, Itching, others Hematologic/Lymphatic: denies: anemia, blood clots, easy bleeding, easy bruising, swollen glands, others Endocrine: denies: excessive hunger, excessive sweating, excessive thirst, excessive urination, flushing, intolerance to cold, intolerance to heat, unexplained weight gain, unexplained weight loss, others Psychiatric: denies: anxiety, bipolar disorder, depression, hopeless, panic disorder, schizophrenia, sleepless, suicidal, others All Other Systems: Reviewed and Negative Vital Signs Vital Signs Date Time Temp Pulse Resp B/P (MAP) Pulse Ox O2 Delivery O2 Flow Rate FiO2 04/26/25 21:00 97.9 58 18 126/86 (99) 98 97.9 04/26/25 20:47 Room Air* 0 21 Physical Exam GENERAL: Alert and oriented x 3. No acute distress. EYES: PERRL, EOMI. Anicteric. HENT: Moist mucous membranes. LUNGS: Clear to auscultation bilaterally. CARDIOVASCULAR: Regular rate and rhythm. ABDOMEN: Soft, nontender and nondistended. EXTREMITIES: No edema. NEUROLOGIC: No focal neurological deficits. SKIN: Warm, dry. Labs/Diagnostic Data Labs Test 04/26/25 06:08 04/25/25 19:57 Range/Units White Blood Count 8.0 4.4-10.8 10^3/uL Red Blood Count 5.18 4.5-5.90 10^6/uL Hemoglobin 15.8 13.5-17.5 g/dL Hematocrit 44.4 41.0-53.0 % Mean Corpuscular Volume 85.7 80.0-100.0 fL Mean Corpuscular Hemoglobin 30.5 28.0-32.0 pg Mean Corpuscular Hemoglobin Concent 35.5 32.0-36.0 g/dL Red Cell Distribution Width 12.9 11.8-14.3 % Platelet Count 241 140-450 10^3/uL Mean Platelet Volume 8.5 6.9-10.8 fL Neutrophils (%) (Auto) 50.5 37.0-80.0 % Lymphocytes (%) (Auto) 38.5 10.0-50.0 % Monocytes (%) (Auto) 9.2 0.0-12.0 % Eosinophils (%) (Auto) 1.2 0.0-7.0 % Basophils (%) (Auto) 0.6 0.0-2.0 % Neutrophils # (Auto) 4.0 1.6-8.6 10 ^3/uL Lymphocytes # (Auto) 3.1 0.4-5.4 10 ^3/uL Monocytes # (Auto) 0.7 0-1.3 10 ^3/uL Eosinophils # (Auto) 0.1 0-0.8 10 ^3/uL Basophils # (Auto) 0.1 0-0.2 10 ^3/uL Nucleated Red Blood Cells 0.2 % Erythrocyte Sedimentation Rate 1 0-20 mm/hr Prothrombin Time 11.2 9.3-11.8 sec Prothrombin Time INR 1.06 0.9-1.15 D-Dimer, Quantitative 0.31 0.0-0.49 mg/L FEU Sodium Level 142 136-145 mmol/L Potassium Level 3.8 3.5-5.1 mmol/L Chloride Level 105 98-107 mmol/L Carbon Dioxide Level 29 20-31 mmol/L Anion Gap 8 5-15 Blood Urea Nitrogen 12 9-23 mg/dL Creatinine 1.09 0.700-1.30 mg/dL Glomerular Filtration Rate Calc 83 >90 mL/min BUN/Creatinine Ratio 11.0 10.0-20.0 Serum Glucose 92 74-106 mg/dL Calcium Level 9.3 8.7-10.4 mg/dL Total Bilirubin 1.2 H 0.2-1.0 mg/dL Aspartate Amino Transferase (AST) 18 13-40 U/L Alanine Aminotransferase (ALT) 15 7-40 U/L Alkaline Phosphatase 53 46-116 U/L C-Reactive Protein High Sensitivity 0.17 <1.0 mg/dL B-Type Natriuretic Peptide 3.06 0-100 pg/mL Total Protein 7.5 5.7-8.2 g/dL Albumin 4.3 3.2-4.8 g/dL Triglycerides Level 126 < 150 mg/dL Cholesterol Level 206 H < 200 mg/dL LDL Cholesterol 152 H < 100 mg/dL HDL Cholesterol 42 40-59 mg/dL Thyroid Stimulating Hormone (TSH) 3.33 0.55-4.78 uIU/mL Hepatitis B Surface Antigen Negative Negative Hepatitis C Antibody Negative Negative Troponin I High Sensitivity < 3 L </=54 ng/L Assessment Chest pain. CAD. HLD. Medication noncompliance. Asymptomatic bradycardia. Mild bilirubinemia. Alcohol use. Marijuana use. Plan/Recommendation I agree with your ongoing assessment and care of plan. Echocardiogram. Aspirin, Lipitor. DVT and GI prophylactics. Morphine and [place] for pain management. Nitro SL. Additional plan as per the hospital course. A total of 45 minutes was spent reviewing the patient record, examining the patient, making a diagnostic and therapeutic plan, discussing this plan with m edical personnel, following up on diagnostic studies and following the patient for clinical stability excluding any and all procedures. At least 50% of this time was spent in direct, [id number] contact. Plan discussed with: Patient LIANG OZUNA MD Apr 26, 2025 23:40
[2025-04-27] VITALS (8 sets, daily range): BP systolic 110–146; BP diastolic 63–99; PULSE 43–80; RESP 16–19; TEMP 97.8–98.9; O2SAT 97–99
[2025-04-27 07:06] LABS: COVID19 ANTIGEN SOFIA FIA NEGATIVE (NEGATIVE)
[2025-04-27 08:00] LABS: Alanine Aminotransferase 11 U/L (7-40); Albumin 4.1 g/dL (3.2-4.8); Alkaline Phosphatase 53 U/L (46-116); Anion Gap 7 (5-15); BUN/Creatinine Ratio 14.7 (10.0-20.0); Blood Urea Nitrogen 16 mg/dL (9-23); Calcium 9.2 mg/dL (8.7-10.4); Carbon Dioxide 28 mmol/L (20-31); Chloride 105 mmol/L (98-107); Glucose 88 mg/dL (74-106); Magnesium 2.1 mg/dL (1.6-2.6); Potassium 4.1 mmol/L (3.5-5.1); Sodium 140 mmol/L (136-145); Total Protein 7.2 g/dL (5.7-8.2)
[2025-04-27 08:01] LABS: Bilirubin, Total 1.0 mg/dL (0.2-1.0)
--- NOTE | 2025-04-27 08:51 | DVHPN2 ---
Subjective Continues to complain of chest pain Reviewed: Care Plan, H&P, Labs, Medications, Previous Orders, Radiology, Other (Consultation) Changes from previous H/P or p: No Changes Objective Vitals Vital Signs Date Time Temp Pulse Resp B/P (MAP) Pulse Ox O2 Delivery O2 Flow Rate FiO2 04/27/25 08:15 Room Air* 0 21 04/27/25 05:00 98.9 45 17 112/69 (83) 98 98.9 Intake/Output Intake and Output 04/27/25 07:00 Intake Total 2240 ml Balance 2240 ml Intake Oral 2240 ml # Voids 4 General Appearance: Alert, Oriented X3, Cooperative, No acute distress HEENT: Atraumatic Lungs: Clear to auscultation, Normal air movement Cardiovascular: Regular rate, Normal S1, Normal S2, No murmurs Abdomen: Normal bowel sounds, Soft, No tenderness, No hepatospenomegaly Extremities: No edema Neuro: Normal speech, Cranial nerves 3-12 NL Psych/Mental Status: Mental status NL, Mood NL Medications Current Medications Medications Dose Ordered Sig/Horace Route Start Time Stop Time Status Last Admin Dose Admin Nitroglycerin 0.4 mg Q5MINP PRN SL 04/25/25 22:45 Morphine Sulfate 2 mg Q30M PRN IV 04/25/25 22:45 Cancel Ondansetron HCl 4 mg Q4HP PRN IV 04/26/25 01:45 Docusate Sodium 100 mg BIDPRN PRN PO 04/26/25 01:45 Morphine Sulfate 2 mg Q4HPRN PRN IV 04/26/25 01:45 Nitroglycerin 0.4 mg Q5MINP PRN SL 04/26/25 01:45 Cancel Morphine Sulfate 2 mg Q30M PRN IV 04/26/25 01:45 Aspirin 81 mg DAILY PO 04/27/25 10:00 Atorvastatin Calcium 40 mg HS PO 04/26/25 22:00 Pantoprazole Sodium 40 mg DAILY@0730 IV 04/26/25 07:30 04/27/25 06:50 40 MG Enoxaparin Sodium 40 mg DAILY SC 04/26/25 10:00 04/26/25 09:57 40 MG Laboratory Results Laboratory Tests 04/26/25 06:08 04/27/25 06:20 Chemistry Test 04/27/25 06:20 Albumin 4.1 g/dL (3.2-4.8) Calcium Level 9.2 mg/dL (8.7-10.4) Magnesium Level 2.1 mg/dL (1.6-2.6) Total Protein 7.2 g/dL (5.7-8.2) LFT Test 04/27/25 06:20 Alanine Aminotransferase (ALT) 11 U/L (7-40) Alkaline Phosphatase 53 U/L (46-116) Aspartate Amino Transferase (AST) 18 U/L (13-40) Total Bilirubin 1.0 mg/dL (0.2-1.0) Labs and/or images reviewed: Labs reviewed by me, Image(s) reviewed by me Assessment/Plan Assessment/Plan Covering: Chest pain; to rule out ACS in the setting of CAD; continues to complain of chest pain; repeat EKG showed no ischemic changes CAD; status post left heart catheterization without stenting Dyslipidemia Nonadherence Overweight Reviewed EKGs and blood work including troponin levels; no ischemic changes and normal troponin levels Continue aspirin and statin Counseled the patient about the importance of adherence to medical management and medications Counseled the patient regarding adopting healthy lifestyle with diet and exercise in order to lose weight Cardiology is following Echocardiogram reviewed that is within normal limits except mild mitral valve prolapse Reviewed coronary CT that showed estimated mild to moderate stenosis of multiple crying arteries Continue pain management as indicated Telemetry Continue monitoring Late Entry. This medical document was created using an electronic medical record system with computerized dictation system. Although this document has been carefully reviewed, there might still be some phonetic and typographical errors. These areas are purely typographical due to imperfections of the software programs, and do not reflect any compromise in the patient's medical care. Plan discussed with: Patient, Spouse, Other (Nurse) My Orders Orders - RAINE MERRILL MD Procedure Category Date Status Time * Cardiology Consult CONS 04/26/25 Transmitted 11:27 Date of Service: Apr 27, 2025 Billing Provider: RAINE MERRILL MD Common Visit Codes: [id number] INP/OBS CARE(HIGH) RAINE MERRILL MD Apr 27, 2025 08:51
[2025-04-27] MEDS ORDERED: ASPI-543 PO (10:37)
[2025-04-27] MEDS ORDERED: ATOR20TA PO (10:37)
--- NOTE | 2025-04-27 18:30 | DVHSR ---
APPROVED REPORT EXAM: Two-dimensional and M-mode echocardiogram with Doppler and color Doppler. Blood Pressure: 121/74 mmHg INDICATION Rule out structural heart disease RISK FACTORS Height: 5' 9", Weight: 176 DIMENSIONS LVDd5.1 (3.8-5.7cm)LA (2D)3.5 (1.9-4.0cm)Aortic Root3.4 (2.0-3.7cm) LVDs3.4 (2.5-4.0cm)LA (MM) (1.9-4.0cm)Aortic Cusp Exc1.8 (1.5-2.0cm) EF (%) 60.0 (55-70%)Rt. Atrium3.7 (1.9-4.0cm)Asc. Aorta cm IVSd0.9 (0.7-1.1cm)RV (D) (1.8-2.4cm) PWd0.9 (0.7-1.1cm) Mitral Valve MitralMitral Stenosis E wave1.10m/sMV Mean GR.mmHg A wave1.00m/sMV Peak GR.mmHg E/A ratio1.12D MVAcm2 Aortic Valve Aortic ValveAortic Stenosis V10.80m/Jimmie Mean GR.2mmHg V21.00m/Jimmie Peak GR.5mmHg LVOT Diameter2.3 (1.8-2.4cm)Doppler AVA3.32cm2 Pulmonic Valve V20.60m/s Tricuspid Valve TR Velocity2.40m/s [id number] Conclusion LV EF IS 65% NORMAL RV FUNCTION MILD MVP NORMAL TV,PV AND AORTIC VALVE NO EFFUSION
--- NOTE | 2025-04-27 19:44 | ECG ---
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
--- NOTE | 2025-04-27 23:04 | DVHPN2 ---
Progress Note - Dictate Date Seen: Apr 27, 2025 Medical Necessity Reason Pt with a Central, PICC or Fol: No Subjective Patient was seen and evaluated in follow up. Patient reports feeling better since admission. CBC and CMP are unremarkable. vital signs Vital Sign Date Time Temp Pulse Resp B/P (MAP) Pulse Ox O2 Delivery O2 Flow Rate FiO2 04/27/25 12:44 97.8 67 16 112/72 (85) 98 97.8 04/27/25 08:15 Room Air* 0 21 Total Intake and Output 04/26/25 04/26/25 04/27/25 15:00 23:00 07:00 Intake Total 800 ml 1440 ml Balance 800 ml 1440 ml medications Current Medications Medications Dose Ordered Sig/Horace Route Start Time Stop Time Status Last Admin Dose Admin Nitroglycerin 0.4 mg Q5MINP PRN SL 04/25/25 22:45 Morphine Sulfate 2 mg Q30M PRN IV 04/25/25 22:45 Cancel Ondansetron HCl 4 mg Q4HP PRN IV 04/26/25 01:45 Docusate Sodium 100 mg BIDPRN PRN PO 04/26/25 01:45 Morphine Sulfate 2 mg Q4HPRN PRN IV 04/26/25 01:45 Nitroglycerin 0.4 mg Q5MINP PRN SL 04/26/25 01:45 Cancel Morphine Sulfate 2 mg Q30M PRN IV 04/26/25 01:45 Aspirin 81 mg DAILY PO 04/27/25 10:00 04/27/25 09:29 81 MG Atorvastatin Calcium 40 mg HS PO 04/26/25 22:00 Pantoprazole Sodium 40 mg DAILY@0730 IV 04/26/25 07:30 04/27/25 06:50 40 MG Enoxaparin Sodium 40 mg DAILY SC 04/26/25 10:00 04/27/25 09:32 40 MG objective GENERAL: Alert and oriented x 3. No acute distress. EYES: PERRL, EOMI. Anicteric. HENT: Moist mucous membranes. LUNGS: Clear to auscultation bilaterally. CARDIOVASCULAR: Regular rate and rhythm. ABDOMEN: Soft, nontender and nondistended. EXTREMITIES: No edema. NEUROLOGIC: No focal neurological deficits. SKIN: Warm, dry. laboratory and microbiology Laboratory Tests 04/27/25 06:20 04/26/25 06:08 Test 04/27/25 06:20 Range/Units Serum Glucose 88 74-106 mg/dL Problem List Chest pain. CAD. HLD. Medication noncompliance. Asymptomatic bradycardia. Mild bilirubinemia. Alcohol use. Marijuana use. Assessment/Plan Continued all current supportive medical care. Nitro SL. Aspirin. Echocardiogram. DVT and GI prophylactics. Morphine for pain management. Additional plan as per the hospital course. Plan discussed with: Patient LIANG OZUNA MD Apr 27, 2025 14:33
[2025-04-28] MEDS: NITROGLYCERIN 0.4 MG SL TAB SL PRN (00:57)
[2025-04-28 01:00] VITALS: BP 116/77; PULSE 55; RESP 17; TEMP 98; O2SAT 97
[2025-04-28 05:00] VITALS: BP 122/78; PULSE 58; RESP 17; TEMP 97.8; O2SAT 99
[2025-04-28 07:09] LABS: Hematocrit 44.2 % (41.0-53.0); Hemoglobin 15.9 g/dL (13.5-17.5); Mean Corpuscular Hemoglobin 30.7 pg (28.0-32.0); Mean Corpuscular Volume 85.2 fL (80.0-100.0); Nucleated Red Blood Cells % 0.2 %
[2025-04-28 07:14] LABS: Anion Gap 8 (5-15); Carbon Dioxide 27 mmol/L (20-31); Chloride 104 mmol/L (98-107); Potassium 3.9 mmol/L (3.5-5.1); Sodium 139 mmol/L (136-145)
[2025-04-28 07:15] LABS: Calcium 9.0 mg/dL (8.7-10.4)
[2025-04-28 07:20] LABS: BUN/Creatinine Ratio 9.4 (10.0-20.0); Blood Urea Nitrogen 10 mg/dL (9-23); Glucose 97 mg/dL (74-106)
[2025-04-28 08:00] VITALS: PULSE 53
--- NOTE | 2025-04-28 08:15 | ECG ---
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
--- NOTE | 2025-04-28 08:15 | ECG ---
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
[2025-04-28 09:18] VITALS: BP 107/79; PULSE 46; RESP 19; TEMP 97.7; O2SAT 95
[2025-04-28 13:00] VITALS: BP 140/98; PULSE 73; RESP 20; TEMP 98.1
--- NOTE | 2025-04-28 15:07 | DVHPNRES ---
Progress Note Date Seen: Apr 28, 2025 Resident Creating Document: IVAN CAMPOS RESIDENT Has the PT tested + for MRSA If YES, has PT been informed?: No Medical Necessity Reason Pt with a Central, PICC or Fol: No Subjective Review of Systems The patient is a 50-year-old male with a history of coronary artery disease (non-obstructive on CTA November 2024), hyperlipidemia, and medication non- compliance admitted for evaluation of worsening intermittent chest pain. He describes sharp, pressure-like chest pain localized to the left anterior chest, with episodes lasting seconds to minutes. He reports one prolonged episode overnight lasting ~15 minutes with intensity 89/10, associated with shortness of breath but no diaphoresis, nausea, vomiting, palpitations, or syncope. Pain sometimes worsens with movement and improves with relaxation. He denies fever, chills, cough, abdominal pain, or new neurological symptoms. No new chest pain reported this morning. The patient is ambulatory, hemodynamically stable, and expresses anxiety about recurrent pain. Diagnostics Labs * CBC: unremarkable * CMP: normal; Cr 1.06, GFR 86 * Electrolytes: WNL * Lipids: Cholesterol 206 ?, LDL 152 ?, HDL 42 * TSH: 3.33 normal * CRP: normal * Troponins: <3, 4, 4 ng/L ? negative * BNP: 3.06 (normal) * Coagulation panel: normal Imaging / Studies * CXR: negative * EKG (04/25 & 04/28): normal sinus rhythm, no ischemic changes * Echocardiogram (04/27): LVEF 65%, normal RV function, mild MVP, no effusion, no significant valvular stenosis * CTA Coronary (Nov 2024): Calcium score 110, 3040% LAD stenosis, 10% LCx stenosis, no LM/RCA disease Objective vital signs Vital Sign Date Time Temp Pulse Resp B/P (MAP) Pulse Ox O2 Delivery O2 Flow Rate FiO2 04/28/25 13:00 98.1 73 20 140/98 (112) 98.1 04/28/25 09:18 95 04/28/25 08:18 Room Air* 0 21 Total Intake and Output 04/27/25 04/27/25 04/28/25 15:00 23:00 07:00 Intake Total 800 ml 400 ml Balance 800 ml 400 ml medications Current Medications Medications Dose Ordered Sig/Horace Route Start Time Stop Time Status Last Admin Dose Admin Nitroglycerin 0.4 mg Q5MINP PRN SL 04/25/25 22:45 04/28/25 01:07 0.4 MG Morphine Sulfate 2 mg Q30M PRN IV 04/25/25 22:45 Cancel Ondansetron HCl 4 mg Q4HP PRN IV 04/26/25 01:45 Docusate Sodium 100 mg BIDPRN PRN PO 04/26/25 01:45 Morphine Sulfate 2 mg Q4HPRN PRN IV 04/26/25 01:45 Nitroglycerin 0.4 mg Q5MINP PRN SL 04/26/25 01:45 Cancel Morphine Sulfate 2 mg Q30M PRN IV 04/26/25 01:45 Aspirin 81 mg DAILY PO 04/27/25 10:00 04/28/25 08:43 81 MG Atorvastatin Calcium 40 mg HS PO 04/26/25 22:00 04/27/25 21:23 40 MG Pantoprazole Sodium 40 mg DAILY@0730 IV 04/26/25 07:30 04/27/25 06:50 40 MG Enoxaparin Sodium 40 mg DAILY SC 04/26/25 10:00 04/27/25 09:32 40 MG Examination * General: Alert, oriented, no acute distress. * Cardiac: Regular rate and rhythm, no murmurs/rubs/gallops. No JVD. Peripheral pulses intact. * Respiratory: Lungs clear bilaterally, no rales/wheezes. * Abdomen: Soft, non-tender, no hepatomegaly. * Extremities: No cyanosis, clubbing, or edema. laboratory and microbiology Laboratory Tests 04/28/25 06:40 Test 04/28/25 06:40 Range/Units Serum Glucose 97 74-106 mg/dL Problem List/Assessment/Plan Problem List/Assessment/Plan Assessment 1. Chest pain, unspecified type ACS ruled out by negative troponins and serial EKGs. Likely musculoskeletal/anxiety related. 2. Stable coronary artery disease, non-obstructive confirmed by CTA with mild LAD/LCx stenosis. No current ischemia. 3. Hyperlipidemia uncontrolled LDL 152, requires aggressive lipid management. 4. Medication non-adherence contributing to risk of progression. 5. Anxiety disorder (suspected) contributing to symptom perception. 6. Asymptomatic sinus bradycardia stable, no intervention needed. Plan Cardiovascular * ACS ruled out; no stress testing indicated during this admission. * Continue guideline-directed medical therapy: * Aspirin 81 mg PO daily * Atorvastatin 40 mg PO nightly (consider uptitration to high-intensity with LDL goal <70 mg/dL) * Telemetry monitoring while inpatient. * Educate patient on medication adherence and lifestyle modification (diet, exercise, smoking/alcohol cessation). * Arrange outpatient cardiology follow-up for long-term CAD management. GI * Consider empiric trial of PPI if reflux symptoms persist. Psychiatric * Anxiety suspected as major contributor. Recommend reassurance and consider outpatient psychiatry/behavioral health referral. Prophylaxis * DVT prophylaxis: Enoxaparin 40 mg SQ daily (if not contraindicated). * GI prophylaxis: Pantoprazole 40 mg daily while on aspirin/statin. Thank you for the consult we are signing off on the patient. Case discussed in detail with the attending physician, including the clinical presentation, diagnostic workup, and comprehensive management plan. The patient was present for the discussion and demonstrated understanding of his condition and the proposed plan Plan discussed with: Patient Visit Coding Cardiology RES Date of Service: Apr 28, 2025 Billing Provider: LILIA SRINIVASAN MD Cardiology Common Codes: 88944-[id number] [facility](IVAN Pisnao RESIDENT Apr 28, 2025 15:07
[2025-04-28 17:03] VITALS: BP 122/79; PULSE 66; RESP 19; TEMP 97.9; O2SAT 98
[2025-04-28] MEDS ORDERED: NITR0.4S29 SL (17:42)
[2025-04-28] MEDS ORDERED: ASPI-543 PO (17:42)
[2025-04-28] MEDS ORDERED: ATOR20TA PO (17:42)
--- NOTE | 2025-04-28 17:44 | DVHDSRES ---
Discharge Summary Date of Admission Resident Creating Document: IVAN CAMPOS MAYLIN RESIDENT Apr 25, 2025 at 22:34 Date of Discharge: Apr 28, 2025 Admitting Diagnosis Stable angina Labs/Diagnostic Data: Laboratory Results Test 04/28/25 06:40 04/27/25 06:20 04/26/25 06:08 04/26/25 06:00 White Blood Count 6.7 10^3/uL (4.4-10.8) Red Blood Count 5.19 10^6/uL (4.5-5.90) Hemoglobin 15.9 g/dL (13.5-17.5) Hematocrit 44.2 % (41.0-53.0) Mean Corpuscular Volume 85.2 fL (80.0-100.0) Mean Corpuscular Hemoglobin 30.7 pg (28.0-32.0) Mean Corpuscular Hemoglobin Concent 36.0 g/dL (32.0-36.0) Red Cell Distribution Width 12.8 % (11.8-14.3) Platelet Count 235 10^3/uL (140-450) Mean Platelet Volume 8.1 fL (6.9-10.8) Neutrophils (%) (Auto) 48.3 % (37.0-80.0) Lymphocytes (%) (Auto) 40.5 % (10.0-50.0) Monocytes (%) (Auto) 8.5 % (0.0-12.0) Eosinophils (%) (Auto) 2.1 % (0.0-7.0) Basophils (%) (Auto) 0.6 % (0.0-2.0) Neutrophils # (Auto) 3.2 10 ^3/uL (1.6-8.6) Lymphocytes # (Auto) 2.7 10 ^3/uL (0.4-5.4) Monocytes # (Auto) 0.6 10 ^3/uL (0-1.3) Eosinophils # (Auto) 0.1 10 ^3/uL (0-0.8) Basophils # (Auto) 0 10 ^3/uL (0-0.2) Nucleated Red Blood Cells 0.2 % Sodium Level 139 mmol/L (136-145) Potassium Level 3.9 mmol/L (3.5-5.1) Chloride Level 104 mmol/L (98-107) Carbon Dioxide Level 27 mmol/L (20-31) Anion Gap 8 (5-15) Blood Urea Nitrogen 10 mg/dL (9-23) Creatinine 1.06 mg/dL (0.700-1.30) Glomerular Filtration Rate Calc 86 mL/min (>90) BUN/Creatinine Ratio 9.4 (10.0-20.0) Serum Glucose 97 mg/dL (74-106) Calcium Level 9.0 mg/dL (8.7-10.4) Magnesium Level 2.1 mg/dL (1.6-2.6) Total Bilirubin 1.0 mg/dL (0.2-1.0) Aspartate Amino Transferase (AST) 18 U/L (13-40) Alanine Aminotransferase (ALT) 11 U/L (7-40) Alkaline Phosphatase 53 U/L (46-116) Total Protein 7.2 g/dL (5.7-8.2) Albumin 4.1 g/dL (3.2-4.8) Erythrocyte Sedimentation Rate 1 mm/hr (0-20) Prothrombin Time 11.2 sec (9.3-11.8) Prothrombin Time INR 1.06 (0.9-1.15) D-Dimer, Quantitative 0.31 mg/L FEU (0.0-0.49) C-Reactive Protein High Sensitivity 0.17 mg/dL (<1.0) B-Type Natriuretic Peptide 3.06 pg/mL (0-100) Triglycerides Level 126 mg/dL (< 150) Cholesterol Level 206 mg/dL (< 200) LDL Cholesterol 152 mg/dL (< 100) HDL Cholesterol 42 mg/dL (40-59) Thyroid Stimulating Hormone (TSH) 3.33 uIU/mL (0.55-4.78) Hepatitis B Surface Antigen Negative (Negative) Hepatitis C Antibody Negative (Negative) Influenza Type A Antigen Negative (Negative) Influenza Type B Antigen Negative (Negative) SARS-CoV-2 Antigen (Rapid) Negative (NEGATIVE) Test 04/25/25 19:57 Troponin I High Sensitivity < 3 ng/L (</=54) Other Laboratory Tests 04/28/25 06:40 Brief Hx & Hospital Course: Tio Robb is a 50-year-old male with a past medical history of coronary artery disease (CAD) and hyperlipidemia who presented to the emergency department with complaints of chest pain. He reported experiencing intermittent chest pain over the past eight months, described as sharp and pressure-like, occasionally accompanied by a burning sensation. The pain had increased in frequency, with a significant episode lasting over 15 minutes the day prior to admission. The pain was alleviated by rest and not associated with shortness of breath. His CAD was diagnosed eight months ago via angiogram, which revealed 10% stenosis in one artery and 3040% stenosis in the left anterior descending (LAD) artery. Despite being prescribed statins and aspirin, the patient had been noncompliant with medications, opting instead for herbal treatments based on personal research. He had not followed up with cardiology for three months and was awaiting insurance approval for further evaluation. Upon admission, the patient was placed on telemetry and underwent chest pain protocol including administration of morphine, nitroglycerin, aspirin, and Lipitor. Serial troponins were negative, and EKG showed normal sinus rhythm without acute ST changes, effectively ruling out acute coronary syndrome (ACS). An echocardiogram revealed a left ventricular ejection fraction of 65%, normal right ventricular function, mild mitral valve prolapse, and no pericardial effusion. Mild asymptomatic bradycardia and mild bilirubinemia were noted and monitored during the hospital stay. A cardiology consult was obtained, and outpatient follow-up was recommended as no urgent intervention was deemed necessary. The patient was extensively counseled for 22 minutes regarding the importance of medication adherence and the risks associated with noncompliance. His condition improved during hospitalization, and he remained hemodynamically stable. He was discharged home on optimal medical therapy with instructions to adhere to prescribed medications, follow a heart-healthy lifestyle including diet and exercise, and maintain close outpatient follow-up with his primary care provider and painter mirror. Pt is lying on bed General Appearance: Alert, Oriented X3, Cooperative, Not in acute distress HEENT: Atraumatic, Mucous membranes moist/pink Respiratory: Clear to auscultation, Normal air movement, No added sounds Cardiovascular: Regular rate, Normal S1, Normal S2, No murmurs Abdominal: Active bowel sounds, Soft, no distention, no tenderness Extremities: No edema, Normal pulses, No tenderness/swelling Skin: No Significant rash Neuro: Normal speech, sensorimotor deficits none Psych/Mental Status: Mental status NL, Mood NL Nurse was there as barber tool sharpener during examination Operations or Procedures ECHO Conclusion LV EF IS 65% NORMAL RV FUNCTION MILD MVP NORMAL TV,PV AND AORTIC VALVE NO EFFUSION Condition at Discharge: Fair Final Diagnosis/Problems List # Chest pain , ruled out ACS, likely due to angina and/or costochondritis # ruled out ACS # CAD with angina # medication noncompliance # Hx HLD # Asymptomatic bradycardia, monitor on telemetry # Mild bilirubinemia, monitor for now # overweightBMI 27 Discharge Disposition: Home Discharge Instruct/Medications Diet: Cardiac 2g Na,low cholest Activity: No Restrictions, As Tolerated Follow Up/Referral: PCP, cardiology for possible stress test and angio Medications: Aspirin 81 mg daily once Lipitor 40 mg daily once Nitroglycerin as needed for chest pain Rest as per EMR Scheduled Aspirin (Aspir-Low), 81 MG PO DAILY Atorvastatin Calcium (Lipitor), 2 TAB PO DAILY Scheduled PRN Nitroglycerin (Ntrostat Sublingual), 0.4 MG SL TIDPRN PRN Discharge Statement: "Patient was advised to return to the ER or call 911 if any headaches, dizziness, shortness of breath, chest pain, abdominal pain, bleeding, fevers, or worsening of medical condition. Patient was counseled about treatment plan, medications, possible side effects, patientverbalized understanding. All questions were answered to the best of my ability. This discharge took greater then 30 minutes in planning, reviewing documentation, counseling the patient, and discussing with other team members." ASSESSMENT ASSESSMENT Assessment # Chest pain likely stable angina # ruled out ACS # CAD # medication noncompliance # Hx HLD # Asymptomatic bradycardia, monitor on telemetry # Mild bilirubinemia, monitor for now # overweightBMI 27 Date of Service: Apr 28, 2025 Billing Provider: LUCAS MILAN MD Common Visit Codes: 17515-IGD/OBS DISCH DAY >30min ANGEL GARCIA RESIDENT Apr 28, 2025 17:44 LCUAS MILAN MD Apr 29, 2025 16:30
--- NOTE | 2025-04-28 22:52 | DVHPN2 ---
Progress Note - Dictate Date Seen: Apr 28, 2025 Has the PT tested + for MRSA If YES, has PT been informed?: No Medical Necessity Reason Pt with a Central, PICC or Fol: No Subjective Patient was seen and evaluated in follow up. Patient has no new complaints at this time. Patient denies any cardiac symptoms. Patient is cardiac stable for discharge. Telemetry reviewed. vital signs Vital Sign Date Time Temp Pulse Resp B/P (MAP) Pulse Ox O2 Delivery O2 Flow Rate FiO2 04/28/25 17:03 97.9 66 19 122/79 (93) 98 97.9 04/28/25 08:18 Room Air* 0 21 Total Intake and Output 04/27/25 04/27/25 04/28/25 15:00 23:00 07:00 Intake Total 800 ml 400 ml Balance 800 ml 400 ml medications Current Medications Medications Dose Ordered Sig/Horace Route Start Time Stop Time Status Last Admin Dose Admin Morphine Sulfate 2 mg Q30M PRN IV 04/25/25 22:45 Cancel Nitroglycerin 0.4 mg Q5MINP PRN SL 04/26/25 01:45 Cancel objective GENERAL: Alert and oriented x 3. No acute distress. EYES: PERRL, EOMI. Anicteric. HENT: Moist mucous membranes. LUNGS: Clear to auscultation bilaterally. CARDIOVASCULAR: Regular rate and rhythm. ABDOMEN: Soft, nontender and nondistended. EXTREMITIES: No edema. NEUROLOGIC: No focal neurological deficits. SKIN: Warm, dry. laboratory and microbiology Laboratory Tests 04/28/25 06:40 Test 04/28/25 06:40 Range/Units Serum Glucose 97 74-106 mg/dL Problem List Chest pain. CAD. HLD. Medication noncompliance. Asymptomatic bradycardia. Mild bilirubinemia. Alcohol use. Marijuana use. Assessment/Plan Continued all current supportive medical care. Nitro SL. Aspirin. DVT and GI prophylactics. Morphine for pain management. Additional plan as per the hospital course. Dietary Evaluation Review Comments: Encourage plant-based diet Cardiac diet Increase physical activities gradual wt loss Expected Outcomes/Goals: Improved physical strength through routine exercises Plan discussed with: Patient LIANG OZUNA MD Apr 28, 2025 22:52
== END 2025-04-28 18:50 | disposition home or self-care (01) | DRG 303 ==
LOC: ER 16:59 → OVERFLOW 22:34 → TELE-WESTW 04-26 02:55
PROVIDERS: ADMIT Student in an Organized Health Care Education/Training Program; ATTEND Emergency Medicine
DX: I25.118 Atherosclerotic heart disease of native coronary artery with other forms of angina pectoris (principal); I34.1 Nonrheumatic mitral (valve) prolapse; R00.1 Bradycardia, unspecified; F10.90 Alcohol use, unspecified, uncomplicated; E78.5 Hyperlipidemia, unspecified; Z20.822 Contact with and (suspected) exposure to COVID-19; F12.90 Cannabis use, unspecified, uncomplicated; M94.0 Chondrocostal junction syndrome [Tietze]; F41.9 Anxiety disorder, unspecified; E66.3 Overweight; R78.89 Finding of other specified substances, not normally found in blood; Z91.148 Patient's other noncompliance with medication regimen for other reason; Z83.3 Family history of diabetes mellitus; Z82.49 Family history of ischemic heart disease and other diseases of the circulatory system; Z68.27 Body mass index [BMI] 27.0-27.9, adult; Z86.16 Personal history of COVID-19; Z88.0 Allergy status to penicillin
CPT/HCPCS: 36415; 71045; 80048; 80053; 80061; 83735; 83880; 84443; 84484; 85025; 85379; 85610; 85652; 86141; 86803; 87340; 87426; 87804; 93005; 93306; 99291; G0378; J2470